=== PATIENT | male | born 1960 | race Caucasian/White ===

== ENCOUNTER → 2016-12-15 | Outpatient (CLI) | payer OTHER ==
[~2016-12-15] MED LIST: ASPI1TAB30 PO; DULA0.75 SQ; FENO145T2 PO; GABA600T2 PO; METF10002 PO; METO100T11 PO; OMEP20TA PO; TRAM50TA PO; VALS1TAB31 PO
--- NOTE | 2016-12-15 15:02 | EKG ---
[facility] [address] [place] [address] Test Date: 2016-12-15 Test Time: 14:58:47 Pat Name: SARAHY FORMAN Department: Room: Gender: Cvor Nurse: PEBBLES : 1960 Requested By: RAEANN ZULUAGA Order Number: [id number] Reading MD: Linda Rahman Measurements Intervals [place] Rate: 66 P: 40 MA: 166 QRS: 21 QRSD: 90 T: 5 QT: 370 QTc: 389 Interpretive Statements SINUS RHYTHM NORMAL ECG Electronically Signed On 12-17-2016 10:41:16 CDT by Linda Rahman
[2016-12-15 15:22] LABS: BASO # 0.1 x10^3/uL (0.0-0.2); BASO % 1 % (0-3); EOS % 2 % (0-3); HEMATOCRIT 41.8 % (39.0-53.0); HEMOGLOBIN 13.8 g/dL (13.0-17.5); LYMPH % 35 % (24-48); MEAN CORPUSCULAR HEMOGLOBIN 29 pg (25-35); MEAN CORPUSCULAR HGB CONC 33 g/dL (31-37); MEAN CORPUSCULAR VOLUME 88 fL (79-100); MONO % 10 % (0-9); NEUT % 52 % (31-73); PLATELET COUNT 325 x10^3/uL (140-400); RED BLOOD COUNT 4.77 x10^6/uL (4.30-5.70); RED CELL DISTRIBUTION WIDTH 13.8 % (11.5-14.5); WHITE BLOOD COUNT 8.3 x10^3/uL (4.0-11.0)
[2016-12-15 15:41] LABS: CALCIUM 10.2 mg/dL (8.5-10.1); CREATININE 1.1 mg/dL (0.7-1.3); GFR 69.2; POTASSIUM 3.7 mmol/L (3.5-5.1); TOTAL BILIRUBIN 0.3 mg/dL (0.2-1.0); TOTAL PROTEIN 8.1 g/dL (6.4-8.2)
== END | disposition home or self-care (01) ==
LOC: SURGPAT 14:30
PROVIDERS: ATTEND Neurological Surgery
DX: Z01.818 Encounter for other preprocedural examination (principal); I10 Essential (primary) hypertension
CPT/HCPCS: 36415; 80053; 85027; 87641; 93005

== ENCOUNTER 2016-12-25 07:02 | Observation (INO) | payer OTHER ==
[~2016-12-25] VITALS: Ht 180.3 cm; Wt 113.4 kg
[2016-12-25] VITALS (11 sets, daily range): BP systolic 118–157; BP diastolic 75–95
[~2016-12-25 07:02] MED LIST changes: +BUPIVAC MPF-EPI 0.5%-1:200000 30 ML VIAL. ONE; +FENTANYL PF 100 MCG/2 ML VIAL. IV PRN; +GELATIN SPONGE SIZE 100. ONE; +HYDROMORPHONE 2 MG/ML VIAL. IV PRN; +IV RINGERS,LACTATED 1000ML 1,000 ML IV SCH; +KETOROLAC 60 MG/2 ML SYRINGE FOR OR. ONE; +LIDOCAINE 1% 1 ML SYRINGE. ID PRN; +MORPHINE SULFATE 2 MG/ML DISP.SYRIN. IV PRN; +ONDANSETRON PF 4 MG/2 ML VIAL. IV PRN; +PROCHLORPERAZINE 10 MG/2 ML VIAL. IV PRN; +THROMBIN 20,000 UNIT SPRAY.SYRN KIT TP ONE
[2016-12-25] MEDS ORDERED: BACITRACIN 50,000 UNIT in IV NORMAL SALINE 1000ML BAG 1,000 ML IRR ONE (08:00)
[2016-12-25] MEDS ORDERED: LIDOCAINE 2% 100 MG/5 ML DISP.SYRIN. ONE (08:24)
[2016-12-25] MEDS ORDERED: PROPOFOL 20 ML IV ONE (08:24)
[2016-12-25] MEDS ORDERED: ROCURONIUM 50 MG/5 ML VIAL. ONE (08:25)
[2016-12-25] MEDS ORDERED: DEXAMETHASONE SOD PHOS 20 MG/5 ML VIAL. ONE (08:25)
[2016-12-25] MEDS ORDERED: EPHEDRINE PF IN SALINE 50 MG/5 ML DISP.SYRIN. IV ONE (08:25)
[2016-12-25] MEDS ORDERED: ONDANSETRON PF 4 MG/2 ML VIAL. ONE (08:25)
[2016-12-25] MEDS ORDERED: PROPOFOL 50 ML IV ONE (08:26)
[2016-12-25] MEDS ORDERED: REMIFENTANIL 2 MG VIAL. IV ONE (08:26)
[2016-12-25] MEDS ORDERED: FENTANYL PF 100 MCG/2 ML VIAL. ONE (08:27)
[2016-12-25] MEDS ORDERED: SUCCINYLCHOLINE 200 MG/10 ML VIAL. ONE (08:28)
[2016-12-25] MEDS: CEFAZOLIN 2GM PREMIX 50 ML IV PRN ×3 (09:20→16:50)
[2016-12-25] MEDS ORDERED: PHENYLEPHRINE in 0.9% NACL PF 1 MG/10 ML DISP.SYRIN. IV ONE ×2 (09:29→10:00)
[2016-12-25] MEDS ORDERED: NEOSTIGMINE METHYLSULFATE 5 MG/5 ML SYRINGE. ONE (11:02)
[2016-12-25] MEDS ORDERED: GLYCOPYRROLATE 1 MG/5 ML VIAL. ONE (11:03)
[2016-12-25] MEDS ORDERED: DESFLURANE > 120 MINUTES IH ONE (11:21)
[2016-12-25] MEDS: FENTANYL PF 100 MCG/2 ML VIAL. IV PRN ×2 (12:01→12:08)
[2016-12-25] MEDS: POTASSIUM CL 20MEQ-0.45% NACL 1,000 ML IV SCH (12:07)
[2016-12-25] MEDS ORDERED: ACETAMINOPHEN 325 MG TABLET. PO PRN (12:15)
[2016-12-25] MEDS ORDERED: ASA/APAP/CAFFEINE 250/250/65MG TABLET. PO PRN (12:15)
[2016-12-25] MEDS ORDERED: CALCIUM CARBONATE 500 MG TAB.CHEW PO PRN (12:15)
[2016-12-25] MEDS ORDERED: ONDANSETRON PF 4 MG/2 ML VIAL. IV PRN (12:15)
[2016-12-25] MEDS ORDERED: DEXTROSE 50% 25 GM / 50ML DISP.SYRIN. IV PRN (12:15)
[2016-12-25] MEDS ORDERED: FENTANYL PF 100 MCG/2 ML VIAL. IV PRN ×2 (12:15)
[2016-12-25] MEDS ORDERED: DIPHENHYDRAMINE 50 MG/ML VIAL IV PRN (12:15)
[2016-12-25] MEDS ORDERED: MAG HYDROX/ALUMINUM HYD/SIMETH 30 ML ORAL.SUSP PO PRN (12:15)
[2016-12-25] MEDS ORDERED: MAGNESIUM HYDROXIDE 2,400 MG/30 ML ORAL.SUSP. PO PRN (12:15)
[2016-12-25] MEDS ORDERED: DIPHENHYDRAMINE HCL 25 MG CAPSULE PO PRN (12:15)
[2016-12-25] MEDS ORDERED: ZOLPIDEM 5 MG TABLET. PO PRN (12:15)
[2016-12-25] MEDS ORDERED: 0.9 % SODIUM CHLORIDE 10 ML DISP.SYRIN. IV PRN (12:15)
[2016-12-25] MEDS: METOPROLOL SUCC 24HR ER 100 MG TAB.ER.24H. PO SCH ×2 (13:00→21:04)
[2016-12-25] MEDS: HYDROCHLOROTHIAZIDE 12.5 MG CAPSULE. PO SCH (13:00)
[2016-12-25] MEDS: METFORMIN 1,000 MG TABLET PO SCH ×3 (14:35→17:06)
[2016-12-25] MEDS: METHOCARBAMOL 750 MG TABLET PO PRN (14:38)
[2016-12-25] MEDS: LOSARTAN POTASSIUM 50 MG TABLET. PO SCH (14:39)
[2016-12-25] MEDS: FENOFIBRATE,MICRONIZED 134 MG CAPSULE PO SCH (14:40)
[2016-12-25] MEDS: PANTOPRAZOLE 40 MG TABLET. PO SCH (17:06)
[2016-12-25] MEDS: GABAPENTIN 300 MG CAPSULE. PO SCH ×2 (17:07→21:04)
[2016-12-25] MEDS: TRAMADOL 50 MG TABLET. PO PRN ×2 (17:10→23:19)
[2016-12-25] MEDS: DOCUSATE SODIUM 100 MG CAPSULE PO SCH (21:04)
[2016-12-26] MEDS: POTASSIUM CL 20MEQ-0.45% NACL 1,000 ML IV SCH (01:27)
[2016-12-26 03:00] VITALS: BP 117/72
[2016-12-26] MEDS: TRAMADOL 50 MG TABLET. PO PRN (06:08)
[2016-12-26] MEDS: PANTOPRAZOLE 40 MG TABLET. PO SCH (06:09)
[2016-12-26 06:31] VITALS: BP 131/76
[2016-12-26] MEDS: HYDROCHLOROTHIAZIDE 12.5 MG CAPSULE. PO SCH (08:34)
[2016-12-26] MEDS: DOCUSATE SODIUM 100 MG CAPSULE PO SCH (08:34)
[2016-12-26] MEDS: METFORMIN 1,000 MG TABLET PO SCH (08:35)
[2016-12-26] MEDS: LOSARTAN POTASSIUM 50 MG TABLET. PO SCH (08:35)
[2016-12-26] MEDS: FENOFIBRATE,MICRONIZED 134 MG CAPSULE PO SCH (08:35)
[2016-12-26] MEDS: METHOCARBAMOL 750 MG TABLET PO PRN (08:35)
[2016-12-26] MEDS: METOPROLOL SUCC 24HR ER 100 MG TAB.ER.24H. PO SCH (08:36)
--- NOTE | 2016-12-26 09:56 | DISCH ---
DISCHARGE INSTRUCTIONS Condition on Discharge Condition on Discharge: Stable Activity After Discharge Activity Instructions for Disc: Resume previous activity, Activity as tolerated Bathing Instructions: Shower-keep dressing dry Lifting Instructions after Dis: No heavy lifting, No pulling or pushing Driving Instructions after Dis: Do not drive Diet after Discharge Additional Diet Restrictions: resume home diet Wound Incision Care Wound/Incision Care: Ice to area for comfort Other wound/incision instructi: may remove dressing in 48 hrs if dry then may shower- no soaking Contacting the after DC Call your doctor for: Concerns you may have Follow-Up Follow up with: Dr. Mota's nurse [phone] PAOLO ORNELAS APRN Dec 26, 2016 09:56
[2016-12-26] MEDS ORDERED: METH750T2 PO (10:02)
[2016-12-26] MEDS ORDERED: DOCU-27 PO (10:02)
--- NOTE | 2016-12-26 10:16 | PDOC ---
PROGRESS NOTES Subjective Subjective POD #1 awake, alert right leg pain resolved, still c/o mild right hip pain when up no headache ate breakfast well ambulated to BR without difficulty Objective Objective Vital Signs Date Time Temp Pulse Resp B/P Pulse Ox O2 Delivery O2 Flow Rate FiO2 12/26/16 08:36 85 126/77 12/26/16 07:51 Room Air 12/26/16 07:30 96 12/26/16 06:31 98.1 18 98.1 Intake and Output 12/26/16 07:00 Intake Total 4686 ml Output Total 3320 ml Balance 1366 ml Intake Oral 2600 ml IV Total 2086 ml Output Urine Total 3300 ml Estimated Blood Loss 20 ml # Voids 1 Physical Exam General: Alert, Oriented X3, Cooperative, No acute distress MUSCULOSKELETAL: Other (LOVELACE) Neuro: Normal speech Skin: Other (Dressing C,D,I, flat) Assessment Assessment Problems Medical Problems: (1) Herniated lumbar intervertebral disc Status: Acute Plan Plan of Care may dc home f/u 2 weeks Comment Review of Relevant I have reviewed the following items shu (where applicable) has been applied. Labs Laboratory Tests Test 12/25/16 07:32 12/25/16 11:55 12/25/16 16:38 12/26/16 06:13 Glucose (Fingerstick) 138mg/dL (70-99) 154mg/dL (70-99) 210mg/dL (70-99) 136mg/dL (70-99) Laboratory Tests Test 12/25/16 11:55 12/25/16 16:38 12/26/16 06:13 Glucose (Fingerstick) 154mg/dL (70-99) 210mg/dL (70-99) 136mg/dL (70-99) Medications Current Medications Ondansetron HCl (Zofran) 4 mg PRN Q6HRS PRN IV Nausea; Start 12/25/16 at 07:00 ; Stop 12/26/16 at 06:59; Status DC Fentanyl Citrate (Fentanyl 2ml Vial) 25 mcg PRN Q5MIN PRN IV MILD PAIN; Start 12/25/16 at 07:00; Stop 12/26/16 at 06:59; Status DC Fentanyl Citrate (Fentanyl 2ml Vial) 50 mcg PRN Q5MIN PRN IV MODERATE PAIN Last administered on 12/25/16t 12:08; Start 12/25/16 at 07:00; Stop 12/26/16 at 06:59; Status DC Morphine Sulfate 1 mg 1 mg PRN Q10MIN PRN IV SEVERE PAIN; Start 12/25/16 at 07: 00; Stop 12/26/16 at 06:59; Status DC Lactated Ringer's (Iv Lactated Ringers) 1,000 ml @ 30 mls/hr Q24H IV Last administered on 12/25/16 07:38; Start 12/25/16 at 07:00; Stop 12/25/16 at 18:59 ; Status DC Lidocaine HCl 2 ml 1X PRN PRN ID IV START; Start 12/25/16 at 07:00; Stop at 06:59; Status DC Hydromorphone HCl (Dilaudid) 0.5 mg PRN Q10MIN PRN IV SEVERE PAIN, Second choice; Start 12/25/16 at 07:00; Stop 12/26/16 at 06:59; Status DC Prochlorperazine Edisylate 5 mg 5 mg PACU PRN PRN IV NAUSEA; Start 12/25/16 at 07:00; Stop 12/26/16 at 06:59; Status DC Bacitracin 76087 unit/Sodium Chloride 1,000 ml @ 1,000 mls/hr 1X PERIOP ONCE IRR Last administered on 12/25/16 09:44; Start 12/25/16 at 08:00; Stop at 08:59; Status DC Cefazolin Sodium/ Dextrose (Ancef 2gm Premix) 50 ml @ 100 mls/hr 1X PREOP PRN IV PRIOR TO PROCEDURE Last administered on 12/25/16 09:20; Start 12/25/16 at 06 :00; Stop 12/25/16 at 18:00; Status DC Thrombin 20,000 unit STK-MED ONCE TP Last administered on 12/25/16 09:44; Start 12/25/16 at 06:42; Stop 12/25/16 at 06:43; Status DC Bupivacaine HCl/ Epinephrine Bitart (Sensorcain-Mpf Epi 0.5%-1:[id number]) 30 ml STK -MED ONCE .ROUTE Last administered on 12/25/16 09:44; Start 12/25/16 at 06:43 ; Stop 12/25/16 at 06:44; Status DC Gelatin (Gelfoam Size 100) 1 each STK-MED ONCE .ROUTE Last administered on 09:44; Start 12/25/16 at 06:43; Stop 12/25/16 at 06:44; Status DC Ketorolac Tromethamine 60 mg 60 mg STK-MED ONCE .ROUTE Last administered on 09:44; Start 12/25/16 at 06:43; Stop 12/25/16 at 06:44; Status DC Propofol (Diprivan) 20 ml @ As Directed STK-MED ONCE IV ; Start 12/25/16 at 08: 24; Stop 12/25/16 at 08:25; Status DC Lidocaine HCl 100 mg STK-MED ONCE .ROUTE ; Start 12/25/16 at 08:24; Stop at 08:25; Status DC Rocuronium [place] (Zemuron) 50 mg STK-MED ONCE .ROUTE ; Start 12/25/16 at 08:25 ; Stop 12/25/16 at 08:26; Status DC Dexamethasone Sodium Phosphate (Decadron) 20 mg STK-MED ONCE .ROUTE ; Start at 08:25; Stop 12/25/16 at 08:26; Status DC Ondansetron HCl (Zofran) 4 mg STK-MED ONCE .ROUTE ; Start 12/25/16 at 08:25; Stop 12/25/16 at 08:26; Status DC Ephedrine Sulfate 50 mg STK-MED ONCE IV ; Start 12/25/16 at 08:25; Stop at 08:26; Status DC Remifentanil HCl 2 mg 2 mg STK-MED ONCE IV ; Start 12/25/16 at 08:26; Stop 12/25 at 08:27; Status DC Propofol (Diprivan) 50 ml @ As Directed STK-MED ONCE IV ; Start 12/25/16 at 08: 26; Stop 12/25/16 at 08:27; Status DC Fentanyl Citrate (Fentanyl 2ml Vial) 100 mcg STK-MED ONCE .ROUTE ; Start at 08:27; Stop 12/25/16 at 08:28; Status DC Succinylcholine Chloride (Anectine) 200 mg STK-MED ONCE .ROUTE ; Start 12/25/16 at 08:28; Stop 12/25/16 at 08:29; Status DC Phenylephrine HCl 1 mg STK-MED ONCE IV ; Start 12/25/16 at 09:29; Stop 12/25/16 at 09:30; Status DC Phenylephrine HCl 1 mg STK-MED ONCE IV ; Start 12/25/16 at 10:00; Stop 12/25/16 at 10:01; Status DC Neostigmine Methylsulfate 5 mg STK-MED ONCE .ROUTE ; Start 12/25/16 at 11:02; Stop 12/25/16 at 11:03; Status DC Glycopyrrolate (Robinul) 1 mg STK-MED ONCE .ROUTE ; Start 12/25/16 at 11:03; Stop 12/25/16 at 11:04; Status DC Desflurane (Suprane) 90 ml STK-MED ONCE IH ; Start 12/25/16 at 11:21; Stop 12/25 at 11:22; Status DC Acetaminophen/ Aspirin/Caffeine (Excedrin Migraine) 2 tab PRN DAILY PRN PO Migraine; Start 12/25/16 at 12:15 Metformin HCl (Glucophage) 1,000 mg BIDWMEALS PO Last administered on 08:35; Start 12/25/16 at 13:30 Metoprolol Succinate (Toprol Xl) 100 mg BID PO Last administered on 12/26/16 08:36; Start 12/25/16 at 13:00 Tramadol HCl (Ultram) 50 mg PRN Q6HRS PRN PO PAIN Last administered on 06:08; Start 12/25/16 at 12:15 Non-Formulary Medication 0.75 mg Celestin SQ ; Start 01/01/17 at 09:00 Fenofibrate (Lofibra) 134 mg DAILY PO Last administered on 12/26/16 08:35; Start 12/25/16 at 13:00 Gabapentin (Neurontin) 900 mg TID PO Last administered on 12/25/16 21:04; Start 12/25/16 at 14:00 Pantoprazole Sodium (Protonix) 40 mg DAILYAC PO Last administered on 12/26/16 06:09; Start 3/23/17 at 16:30 Losartan Potassium (Cozaar) 100 mg DAILY PO Last administered on 12/26/16 08: 35; Start 12/25/16 at 13:00 Dextrose 12.5 gm PRN Q15MIN PRN IV SEE COMMENTS; Start 12/25/16 at 12:15 Fentanyl Citrate (Fentanyl 2ml Vial) 25 mcg PRN Q1HR PRN IV PAIN; Start at 12:15 Fentanyl Citrate (Fentanyl 2ml Vial) 50 mcg PRN Q1HR PRN IV PAIN; Start at 12:15 Acetaminophen (Tylenol) 650 mg PRN Q6HRS PRN PO MILD PAIN / TEMP; Start at 12:15 Al Hydroxide/Mg Hydroxide (Mylanta Plus Xs) 30 ml PRN Q3HRS PRN PO HEARTBURN / GAS; Start 12/25/16 at 12:15 Calcium Carbonate/ Glycine (Tums) 500 mg PRN Q3HRS PRN PO INDIGESTION; Start at 12:15 Diphenhydramine HCl (Benadryl) 25 mg PRN Q6HRS PRN PO ITCHING; Start 12/25/16 at 12:15 Diphenhydramine HCl (Benadryl) 25 mg PRN Q6HRS PRN IV ITCHING; Start 12/25/16 at 12:15 Zolpidem Tartrate (Ambien) 5 mg PRN QHS PRN PO INSOMNIA, MAY REPEAT IN 1HR; Start 12/25/16 at 12:15 Sodium Chloride 3 ml 3 ml QSHIFT PRN IV AFTER MEDS AND BLOOD DRAWS; Start 12/25 at 12:15 Potassium Chloride/Sodium Chloride (KCl 20 Meq-0.45% Nacl) 1,000 ml @ 75 mls/ hr [id number] IV ; Start 12/25/16 at 12:07 Docusate Sodium (Colace) 100 mg BID PO Last administered on 12/26/16 08:34; Start 12/25/16 at 21:00 Magnesium Hydroxide (Milk Of Magnesia) 2,400 mg PRN Q12HR PRN PO CONSTIPATION; Start 12/25/16 at 12:15 Ondansetron HCl (Zofran) 4 mg PRN Q6HRS PRN IV NAUESA, 1ST CHOICE; Start at 12:15 Methocarbamol (Robaxin) 750 mg PRN TID PRN PO MUSCLE SPASMS Last administered on 12/26/16 08:35; Start 12/25/16 at 12:15 Hydrochlorothiazide (Microzide) 12.5 mg DAILY PO Last administered on 08:34; Start 12/25/16 at 13:00 Active Scripts Active Reported Excedrin Migraine Caplet (Aspirin/Acetaminophen/Caffeine) 1 Each Tablet 2 Tab PO Fenofibrate (Fenofibrate Nanocrystallized) 145 Mg Tablet 145 Mg PO DAILY Valsartan-Hctz 320-12.5 Mg Tab (Valsartan/Hydrochlorothiazide) 1 Each Tablet 1 Each PO DAILY Gabapentin 600 Mg Tablet 900 Mg PO TID Metoprolol Succinate ( Xl ) (Metoprolol Succinate) 100 Mg Tab.er.24h 100 Mg PO BID Omeprazole 20 Mg Tablet.dr 20 Mg PO BID Metformin Hcl 1,000 Mg Tablet 1 Tab PO BID Trulicity (Dulaglutide) 0.75 Mg/0.5 Ml Pen.injctr 0.75 Mg SQ WEEKLY Tramadol Hcl 50 Mg Tablet 50 Mg PO Q6H PRN Vitals/I & O Vital Sign - Last 24 Hours 12/25/16 12/25/16 12/25/16 12/25/16 11:52 11:52 12:01 12:07 Temp 98.6 98.6 98.6 98.6 Pulse 83 80 Resp 15 15 B/P 167/88 144/73 Pulse Ox 96 99 95 O2 Delivery Room Air Room Air Room Air Room Air 12/25/16 12/25/16 12/25/16 12/25/16 12:08 12:23 12:38 13:00 Temp 98.6 98.6 97.9 98.6 98.6 97.9 Pulse 80 80 88 Resp 12 18 B/P 136/78 147/78 146/94 Pulse Ox 99 99 99 96 O2 Delivery Room Air Room Air Room Air Room Air 12/25/16 12/25/16 12/25/16 12/25/16 13:05 13:30 14:00 14:06 Temp 97.5 97.5 Resp 18 B/P 150/95 157/88 140/93 Pulse Ox 96 O2 Delivery Room Air Room Air 12/25/16 12/25/16 12/25/16 3/23/17 14:30 14:39 15:00 15:30 Temp 97.2 97.2 Pulse 85 96 79 Resp 20 18 B/P 144/90 136/92 150/89 143/92 Pulse Ox 97 97 O2 Delivery Room Air Room Air 12/25/16 12/25/16 12/25/16 12/25/16 16:00 17:00 17:10 18:36 Temp 97.3 98.0 97.9 97.3 98.0 97.9 Pulse 87 90 103 Resp 20 20 16 18 B/P 140/90 136/90 128/92 Pulse Ox 97 96 97 O2 Delivery Room Air Room Air Room Air 12/25/16 12/25/16 12/25/16 12/25/16 20:15 21:04 23:19 23:26 Temp 98.0 98.0 Pulse 103 94 Resp 18 18 B/P 128/92 118/75 Pulse Ox 97 95 O2 Delivery Room Air Room Air Room Air 12/26/16 12/26/16 12/26/16 12/26/16 00:30 03:00 06:08 06:31 Temp 98.2 98.1 98.2 98.1 Pulse 88 91 Resp 18 18 18 18 B/P 117/72 131/76 Pulse Ox 95 96 96 O2 Delivery Room Air 12/26/16 12/26/16 12/26/16 12/26/16 07:30 07:51 08:35 08:36 Pulse 85 85 B/P 126/77 126/77 Pulse Ox 96 O2 Delivery Room Air Room Air Intake and Output 12/25/16 12/25/16 12/26/16 15:00 23:00 07:00 Intake Total 1790 ml 1296 ml 1600 ml Output Total 570 ml 1850 ml 900 ml Balance 1220 ml -554 ml 700 ml PAOLO ORNELAS APRN Dec 26, 2016 10:16
[2016-12-26] MEDS ORDERED: HYDR-2679 PO (10:18)
[2016-12-26] MEDS ORDERED: HYDROCODONE/APAP 7.5/325MG TABLET. PO PRN ×2 (10:30)
[2016-12-26 11:09] VITALS: BP 132/77
[2016-12-26] MEDS: GABAPENTIN 300 MG CAPSULE. PO SCH (11:29)
--- NOTE | 2016-12-26 15:06 | PATHOLOGY ---
PATHOLOGY REPORT * * * * * * * * FINAL DIAGNOSIS: Segments of fibrocartilaginous, fibroadipose, and skeletal muscle tissue and bone, lumbar disc and decompression: - Degenerative changes of fibrocartilaginous tissue. COMMENT: There is no evidence of an acute inflammatory process or malignancy. (JPM:; d/t: 12/26/16) REPORT ELECTRONICALLY SIGNED BY: Los Platt M.D. DATE/TIME: 12/26/2016 15:06 * * * * * * * * GROSS PATHOLOGY: Received in formalin labeled "Sarahy Forman - lumbar disc and decompression," are multiple segments of blood tinged, white-carolina to carolina-brown, rubbery, and gritty tissue admixed with possible bone, measuring 4.3 x 2.0 x 0.9 cm in aggregate dimensions. The tissue is submitted representatively in cassette A1, following decalcification. (TTL; 12/25/2016) INITIAL CPT CODE(S): A; 24500, 80198 Professional services [place] [place] [address] Technical services performed by [facility] at [address] [place] [address]. SPECIMEN(S) RECEIVED: A.Lumbar disc and decompression CLINICAL HISTORY: Lumbar herniated disc PATIENT: SARAHY FORMAN /AGE: 12 1960 (Age: 56) PATIENT #: [id number] ALT CASE #: SPECIMEN COLLECTION DATE: 12/25/2016 SPECIMEN RECEIVED DATE: 12/25/2016 [facility] - [address] [place] [address] - PHONE: [phone] * * * END OF REPORT * * *
--- NOTE | 2016-12-26 20:39 | OP ---
DATE OF SURGERY: 12/25/2016 PREOPERATIVE DIAGNOSIS: Recurrent disk herniation L4-L5, left POSTOPERATIVE DIAGNOSIS: Recurrent disk herniation L4-L5, left. OPERATION PERFORMED: Hemilaminotomy and microdiskectomy L4-L5, left. The operation was done with EMG monitoring, fluoroscopy, microscopic dissection. OPERATIVE INDICATIONS: The patient is a very pleasant 56-year-old man who was having difficulty with back pain on the right side and pain, which radiates into his right posterior lateral thigh and leg. The problem started in 2004, he had surgery in 2006, which helped for a few years. The pain returned in 2009 and then he had pain management, which helped him until 04/2016 when the pain became much more severe. On imaging studies, there was a large disk herniation on the right side at L4-L5 with marked nerve root compression. I recommended lumbar microsurgery. I spoke about the surgery and the risks involved. He understood and he wished to go ahead. DESCRIPTION OF PROCEDURE: Following general endotracheal anesthesia, the patient was positioned prone on the Acromed spine board. His lumbar region was prepped and draped in standard fashion. SHANA hose and AV impulse boots were applied for DVT prophylaxis. A microscope was draped. Fluoroscopy was draped and brought into the field. Ancef 2 grams was given less than 1 hour prior to initiation of the surgery. Using fluoroscopic guidance, incision was made, which incorporate a portion of his previous incision and continue somewhat superior to this. I dissected down through the skin and subcutaneous tissue and worked through very dense scar inferiorly and exposed L4-L5 interspace. I confirmed my position fluoroscopically. I placed a [place] micro disk retractor, brought in the microscope and the remainder of the surgery done with the microscope using microscopic technique. I worked diligently, trim away very thickened and hard scar, which extended inferiorly from the superior laminar edge of the patient's previous surgery. I brought in the high speed air drill and burred down the laminotomy and carried this farther superiorly where there was still some intact ligamentum flavum and then worked laterally and inferiorly and root the L5 root in the foramen. I worked superiorly was above the disk space. I trimmed away very thickened ligamentum flavum, removed scar and exposed the dura and the L5 root at the level of the disk and slightly above this. I dissected down through the dense scar adjacent to the dura and trimmed this away laterally. I then used a blunt hook and worked to develop a plane between the posterior ligament and the dura inferiorly. I gently retracted the root medially. I visualized of small amount of spinal fluid emanating from beneath the root. I elected not to place a blunt hook in this location that worked superiorly and developed a plane, which allowed me to then retract the dura medially and I incised the annulus with #11 blade. The amount of spinal fluid was quite small, but I felt that it was definitely present. I worked diligently and I performed a diskectomy with pituitary rongeurs. I was able to pull back disk fragments that came down through into the disk space and then removed laterally and as I worked, the region was very well decompressed. There were multiple disk fragments, which were removed at the end of this time, then the root was quite free. I irrigated copiously. I laid Gelfoam over the exposed dura and also used small amount of blue glue over the region where I felt that spinal fluid could be present. I then irrigated copiously and I closed the wound in layers with absorbable suture and the wound was closed with 3-0 nylon in a vertical mattress manner. The surgery went very well, the monitoring, remained stable throughout the procedure. I was quite pleased with the surgery. RAEANN ZULUAGA MD DR: SB/mark JOB#: [id number] / [id number]
--- NOTE | 2016-12-28 11:51 | PREOP HP ---
DATE OF SERVICE: 12/25/2016 HISTORY OF PRESENT ILLNESS: The patient is a pleasant 56-year-old man who is having difficulty with back pain on the right side and pain which radiates into his right posterior and lateral thigh and leg. The problem started in 2004. He had surgery in 2006, and this helped for a few years. The pain returned in 2009 and had pain management then in 04/2016 when his pain became more severe. Sitting or standing for long periods increases pain. When he sits and is relatively inactive, his pain is a 2 out of 10. Changing positions or lying on his side helps his pain. He takes tramadol. His most recent lumbar epidural steroid injection was in October of this year. He has seen a chiropractor without significant improvement. PAST MEDICAL HISTORY: Arthritis, bilateral artificial knees, gout, cold sores/fever blisters, head/neck injury, hypertension, kidney problems, and liver disease. CURRENT MEDICATIONS: Metformin, omeprazole, metoprolol, gabapentin, losartan, fenofibrate, tramadol, ____ PAST SURGICAL HISTORY: Lumbar surgery in 2006, bilateral total knees in 2009, and bilateral knee replacements in 2012. FAMILY HISTORY: Heart attack in an early age. SOCIAL HISTORY: Employed in ____. . Denies substance abuse. Quit smoking 19 years ago. Drinks alcohol one to two times per year. ALLERGIES: SULFA DRUGS. REVIEW OF SYSTEMS: A 12-point review of systems was obtained and is noncontributory except for that mentioned above. PHYSICAL EXAMINATION: NEUROSURGERY EXAMINATION: GENERAL APPEARANCE: Alert, pleasant, in no acute distress. HEAD: Normocephalic and atraumatic. SKIN: Warm and dry. MUSCULOSKELETAL: Lumbar paraspinal muscle bulk is normal, restricted range of motion of the lumbar spine, [id number] tenderness of lower lumbar spine with palpation, normal range of motion of the lower extremities bilaterally. EXTREMITIES: No clubbing, cyanosis, or edema. NEUROLOGIC: Alert and oriented x 3, normal recent and remote memory, strength 5/5 in bilateral lower extremities, sensory was intact to light touch in bilateral lower extremities except for decrease in the dorsum of the left foot. Reflexes were present and symmetric in the lower extremities bilaterally, positive straight leg raising on the left, normal gait. IMAGING REVIEWED: I reviewed a lumbar MRI scan. On that study, there was a large right posterior paracentral disk protrusion at L4-L5, and he does have smaller central disk abnormalities at L3-L4 and L5-S1, but I did not see significant nerve root compression associated with these. At L4-L5, disk protrusion is associated with a marked decompression and displacement of the L4-L5 nerve root. ASSESSMENT: Intervertebral disk disorders with radiculopathy, lumbar region. PLAN: He has a large herniated disk at L4-L5. My recommendation is that he undergo lumbar microsurgery at this level. I spoke about the surgery and the risks involved. He would like to go ahead. We will make the arrangements. RAEANN ZULUAGA MD DR: SB/mark JOB#: [id number] / [id number]
[2017-01-01] MEDS ORDERED: NON FORMULARY ITEM (Dulaglutide (Trulicity) 0.75 MG) SQ SCH (09:00)
== END 2016-12-26 14:02 | disposition home or self-care (01) ==
LOC: SURG 07:02 → 4 SOUTHEST 12:15
PROVIDERS: ADMIT Neurological Surgery; ATTEND Neurological Surgery
DX: M51.16 Intervertebral disc disorders with radiculopathy, lumbar region (principal); M19.90 Unspecified osteoarthritis, unspecified site; M10.9 Gout, unspecified; I10 Essential (primary) hypertension; Z96.653 Presence of artificial knee joint, bilateral; Z87.891 Personal history of nicotine dependence; Z82.49 Family history of ischemic heart disease and other diseases of the circulatory system
CPT/HCPCS: 63030; 76000; 82947; 97161; 97530; G0378; G0379; G8978; G8979; G8980; J0330; J0690; J1100; J1885; J2370; J2704; J2710; J3010; J3490; J7030; J7120; J2405

== ENCOUNTER 2019-06-02 11:25 | Emergency (ER) | payer OTHER ==
[~2019-06-02] VITALS: Ht 180.3 cm; Wt 113.4 kg
[~2019-06-02 11:25] MED LIST changes: -ASPI1TAB30 PO; +ASPI1TAB31 PO; -BUPIVAC MPF-EPI 0.5%-1:200000 30 ML VIAL. ONE; +DOCU-109 PO; -FENO145T2 PO; +FENO145T30 PO; -FENTANYL PF 100 MCG/2 ML VIAL. IV PRN; -GABA600T2 PO; +GABA600T7 PO; -GELATIN SPONGE SIZE 100. ONE; +HYDR-2679 PO; -HYDROMORPHONE 2 MG/ML VIAL. IV PRN; -IV RINGERS,LACTATED 1000ML 1,000 ML IV SCH; -KETOROLAC 60 MG/2 ML SYRINGE FOR OR. ONE; -LIDOCAINE 1% 1 ML SYRINGE. ID PRN; -METF10002 PO; +METF10007 PO; +METH750T2 PO; +METO-247 PO; -METO100T11 PO; -MORPHINE SULFATE 2 MG/ML DISP.SYRIN. IV PRN; -OMEP20TA PO; +OMEP20TA8 PO; -ONDANSETRON PF 4 MG/2 ML VIAL. IV PRN; -PROCHLORPERAZINE 10 MG/2 ML VIAL. IV PRN; -THROMBIN 20,000 UNIT SPRAY.SYRN KIT TP ONE
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
[2019-06-02 12:19] LABS: BASO # 0.1 x10^3/uL (0.0-0.2); BASO % 1 % (0-3); EOS # 0.1 x10^3/uL (0.0-0.7); EOS % 2 % (0-3); HEMATOCRIT 43.4 % (39.0-53.0); HEMOGLOBIN 14.4 g/dL (13.0-17.5); LYMPH # 1.9 x10^3/uL (1.0-4.8); LYMPH % 23 % (24-48); MEAN CORPUSCULAR HEMOGLOBIN 28 pg (25-35); MEAN CORPUSCULAR HGB CONC 33 g/dL (31-37); MEAN CORPUSCULAR VOLUME 85 fL (79-100); MONO # 0.5 x10^3/uL (0.0-1.1); MONO % 6 % (0-9); NEUT # 5.9 x10^3/uL (1.8-7.7); NEUT % 69 % (31-73); PLATELET COUNT 335 x10^3/uL (140-400); RED BLOOD COUNT 5.11 x10^6/uL (4.30-5.70); RED CELL DISTRIBUTION WIDTH 14.7 % (11.5-14.5); WHITE BLOOD COUNT 8.6 x10^3/uL (4.0-11.0)
[2019-06-02 12:27] LABS: CALCIUM 9.5 mg/dL (8.5-10.1); CREATININE 1.2 mg/dL (0.7-1.3); GFR 62.2; POTASSIUM 4.1 mmol/L (3.5-5.1)
[2019-06-02 12:29] LABS: PROTHROMBIN TIME PATIENT 13.3 SEC (11.7-14.0)
[2019-06-02] MEDS: MORPHINE SULFATE 4 MG/ML VIAL. IV/SQ PRN ×2 (12:33→14:40)
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
[2019-06-02] MEDS ORDERED: IOHEXOL 300 MG/ML 100ML VIAL. IV ONE (13:30)
[2019-06-02] MEDS ORDERED: CONTRAST GIVEN. MC PRN (13:45)
--- NOTE | 2019-06-02 14:06 | EKG ---
[facility] [address] [place] [address] Test Date: 2019-06-02 Test Time: 13:03:30 Pat Name: SARAHY FORMAN Department: Room: Gender: M [employer] Supervisor: MARIA DEL CARMEN : 1960 Requested By: DARLENE STEVENS Order Number: [id number] Reading MD: Everton Figueroa MD Measurements Intervals [place] Rate: 98 P: [place]: QRS: 24 QRSD: 90 T: 1 QT: 334 QTc: 428 Interpretive Statements ATRIAL FIBRILLATION WITH CONTROLLED VENTRICULAR RESPONSE NON-SPECIFIC ST/T CHANGES PVCS Electronically Signed On 06-02-2019 14:19:35 CDT by Everton Figueroa MD
[2019-06-02] MEDS ORDERED: IOHEXOL 350 MG/ML 100 ML VIAL. IV ONE (14:45)
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
[2019-06-02 16:24] LABS: BILIRUBIN,URINE NEGATIVE (NEG); CLARITY,URINE CLEAR; COLOR,URINE YELLOW; NITRITE,URINE NEGATIVE (NEG); PROTEIN,URINE NEGATIVE (NEG-TRACE); UROBILINOGEN,URINE 0.2 mg/dL (0.2 mg/dL)
[2019-06-02 16:26] LABS: BARBITURATES NEG (NEG); BENZODIAZEPINES NEG (NEG); CANNABINOIDS NEG (NEG); COCAINE NEG (NEG); METHADONE NEG (NEG); OPIATES POS (NEG); PHENCYCLIDINE NEG (NEG)
[2019-06-02 16:30] LABS: AMPHETAMINE/METHAMPHETAMINE NEG (NEG); BACTERIA,URINE 0 /HPF (0-FEW); RBC,URINE OCC /HPF (0-2); SQUAMOUS EPITHELIAL CELL,UR FEW /LPF; WBC,URINE RARE /HPF (0-4)
[2019-06-02] MEDS ORDERED: oxyCODONE/APAP 5/325 1 TAB TABLET PO PRN (16:30)
[2019-06-02] MEDS ORDERED: cloNIDine HCL 0.1 MG TABLET PO PRN (16:30)
[2019-06-02] MEDS ORDERED: ACETAMINOPHEN 500 MG TABLET PO PRN (16:30)
[2019-06-02] MEDS ORDERED: MORPHINE SULFATE 4 MG/ML VIAL. IV PRN (16:30)
[2019-06-02] MEDS ORDERED: NICOTINE 21MG PATCH. TD PRN (16:30)
[2019-06-02] MEDS ORDERED: fentaNYL PF VIAL 100 MCG/2 ML VIAL IV PRN (16:30)
[2019-06-02] MEDS ORDERED: ONDANSETRON PF 4 MG/2 ML VIAL. IV PRN (16:30)
[2019-06-02] MEDS ORDERED: ZOLPIDEM 5 MG TABLET. PO PRN (16:30)
[2019-06-02] MEDS ORDERED: LABETALOL 20 MG/4 ML DISP.SYRIN. IVP PRN (16:30)
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
[2019-06-02 20:00] VITALS: BP 123/82
[2019-06-02] MEDS ORDERED: NAPROXEN 500 MG TABLET PO SCH (21:00)
== END 2019-06-02 20:10 | disposition short-term general hospital (02) ==
LOC: ER 11:25
DX: S22.21XA Fracture of manubrium, initial encounter for closed fracture (principal); M54.5 Low back pain; M54.6 Pain in thoracic spine; R51 Headache; M54.2 Cervicalgia; E11.9 Type 2 diabetes mellitus without complications; K21.9 Gastro-esophageal reflux disease without esophagitis; I10 Essential (primary) hypertension; Z88.2 Allergy status to sulfonamides; Z98.890 Other specified postprocedural states; V49.59XA Passenger injured in collision with other motor vehicles in traffic accident, initial encounter; Y93.89 Activity, other specified; Y92.488 Other paved roadways as the place of occurrence of the external cause; Y99.8 Other external cause status
CPT/HCPCS: 36415; 70450; 71250; 71275; 72125; 72128; 72131; 74177; 80048; 80307; 81001; 82962; 84484; 85025; 85610; 85730; 93005; 96374; 96376; 99285; G0480; J2270; Q9967